=== PATIENT | male | born 1955 | race Caucasian/White ===

== ENCOUNTER 2019-05-02 19:19 | Observation (INO) ==
[2019-05-02 20:16] LABS: Basophils # 0.2 10*3/uL (0.0-0.2); Basophils % 0.9 % (0.0-0.8); Eosinophils # 0.2 10*3/uL (0.0-0.87); Eosinophils % 0.9 % (0.00-10.9); Hematocrit 47.8 VOL% (42.0-52.0); Hemoglobin 15.3 GM/DL (14.0-18.0); Immature Granulocytes % 0.6 %; Lymphocytes % 5.7 % (21.2-54.2); Mean Corpuscular Volume 89.8 FL (87-102); Mean Platelet Volume 9.9 FL (9.6-12.0); Monocytes % 6.8 % (1.7-12.7); Neutrophils % 85.1 % (38.7-73.9); Platelet Count 442 T/CUMM (130-400); Red Blood Count 5.32 MC/CUMM (3.8-5.5); Red Cell Distribution Width 14.2 % (9.3-17.3)
[2019-05-02] MEDS ORDERED: ACETAMINOPHEN 500 MG TABLET PO PRN (20:20)
[2019-05-02 20:25] LABS: PT Patient Result 10.4 SECS (9.6-12.2); Partial Thromboplastin Time 23.9 SECS (20.8-36.0)
[2019-05-02 20:39] LABS: Alanine Aminotransferase 105 U/L (16-61); Albumin 3.7 G/DL (3.4-5.0); Alkaline Phosphatase 185 U/L (45-117); Aspartate Amino Transferase 58 U/L (0-37); Blood Urea Nitrogen 26 MG/DL (7-18); Calcium 8.5 MG/DL (8.5-10.1); Estimated Glom Filtration Rate 53 ML/MIN; Glucose 121 MG/DL (74-106); Osmolality,Calculated 280.7 MOS/KG (273-304); Total Protein 6.9 G/DL (6.4-8.3); Troponin I < 0.015 NG/ML (0.00-0.045)
[2019-05-02] MEDS: ONDANSETRON 4 MG/2 ML VIAL IV PRN (21:42)
[2019-05-02] MEDS ORDERED: ALBUTEROL/IPRATROPIUM 3 ML NEB RESP TX ONE (23:47)
[2019-05-02] MEDS: PANTOPRAZOLE 40 MG TABLET PO SCH (23:56)
[2019-05-03] MEDS: ALBUTEROL/IPRATROPIUM 3 ML NEB RESP TX SCH ×4 (00:41→19:15)
[2019-05-03] MEDS: MORPHINE 4 MG/1 ML VIAL IV PRN ×2 (05:09→09:47)
[2019-05-03] MEDS: ONDANSETRON 4 MG/2 ML VIAL IV PRN ×3 (05:10→15:10)
[2019-05-03] MEDS: PANTOPRAZOLE 40 MG TABLET PO SCH (09:42)
[2019-05-03 10:10] LABS: Basophils # 0.1 10*3/uL (0.0-0.2); Eosinophils # 0.1 10*3/uL (0.0-0.87); Eosinophils % 0.6 % (0.00-10.9); Hematocrit 48.4 VOL% (42.0-52.0); Hemoglobin 15.1 GM/DL (14.0-18.0); Immature Granulocytes % 0.9 %; Immature Granulocytes Absolute 0.11 #; Lymphocytes # 0.6 10*3/uL (1.4-4.0); Lymphocytes % 5.2 % (21.2-54.2); Mean Corpuscular HGB Conc 31.2 GM/DL (32-36); Mean Corpuscular Volume 90.8 FL (87-102); Mean Platelet Volume 10.3 FL (9.6-12.0); Monocytes % 7.9 % (1.7-12.7); Neutrophils % 84.4 % (38.7-73.9); Platelet Count 368 T/CUMM (130-400); Red Blood Count 5.33 MC/CUMM (3.8-5.5); Red Cell Distribution Width 14.4 % (9.3-17.3); White Blood Count 12.3 T/CUMM (4-12)
[2019-05-03] MEDS: SODIUM CHLORIDE 0.9% 1,000 ML IV SCH ×2 (10:33→13:52)
[2019-05-03 10:53] LABS: Albumin 3.7 G/DL (3.4-5.0); Bilirubin,Total 0.8 MG/DL (0.2-1.0); Calcium 8.6 MG/DL (8.5-10.1); Osmolality,Calculated 282.5 MOS/KG (273-304); Total Protein 6.9 G/DL (6.4-8.3)
[2019-05-03] MEDS ORDERED: EPINEPHrine 1 MG/ML VIAL IM ONE (11:20)
[2019-05-03] MEDS ORDERED: TRIAMCINOLONE ACETONIDE 40 MG/1 ML VIAL IM ONE (11:20)
[2019-05-03] MEDS ORDERED: NALOXONE 0.4 MG/ML VIAL IV PRN (12:24)
[2019-05-03] MEDS ORDERED: HYDROmorphone PCA 30 MG/30 ML SYRINGE IV SCH (12:30)
[2019-05-03] MEDS: KETOROLAC 30 MG/1 ML VIAL IV SCH ×2 (13:52→18:50)
[2019-05-04] MEDS: KETOROLAC 30 MG/1 ML VIAL IV SCH ×2 (00:24→06:19)
[2019-05-04] MEDS: SODIUM CHLORIDE 0.9% 1,000 ML IV SCH (00:25)
[2019-05-04] MEDS: ALBUTEROL/IPRATROPIUM 3 ML NEB RESP TX SCH ×2 (01:10→08:58)
[2019-05-04] MEDS: ONDANSETRON 4 MG/2 ML VIAL IV PRN (04:11)
[2019-05-04 07:19] VITALS: BP 122/66
[2019-05-04] MEDS: PANTOPRAZOLE 40 MG TABLET PO SCH (08:38)
== END 2019-05-04 10:04 | disposition home or self-care (01) ==
LOC: EDBD → EDUNIT# → N.ED 19:19 → N.EDINP 19:19 → N.3E 20:53
PROVIDERS: ADMIT Surgery; ATTEND Surgery

== ENCOUNTER 2021-02-26 08:20 | Inpatient (IN) ==
[2021-02-26] MEDS ORDERED: MAGNESIUM SULF RIDER 2 GM/50 ML PREMIX IV PRN (10:16)
[2021-02-26] MEDS ORDERED: diphenhydrAMINE CAP 25 MG CAPSULE PO PRN (10:16)
[2021-02-26] MEDS ORDERED: hydrALAZINE 20 MG/1 ML VIAL IV PRN (10:16)
[2021-02-26] MEDS ORDERED: MAGNESIUM SULF RIDER 4 GM/100 ML PREMIX IV PRN (10:16)
[2021-02-26] MEDS ORDERED: guaiFENesin/DM ER 600-30 MG TABLET PO PRN (10:16)
[2021-02-26] MEDS ORDERED: MORPHINE 2 MG/1 ML SYRINGE IV PRN (10:16)
[2021-02-26] MEDS ORDERED: NICOTINE 21 MG/24 HR PATCH TRANSDERM PRN (10:16)
[2021-02-26] MEDS ORDERED: DOCUSATE SODIUM 100 MG CAPSULE PO PRN (10:16)
[2021-02-26] MEDS ORDERED: ZALEPLON 5 MG CAPSULE PO PRN (10:16)
[2021-02-26] MEDS ORDERED: ONDANSETRON 4 MG/2 ML VIAL IV PRN (10:16)
[2021-02-26] MEDS ORDERED: ACETAMINOPHEN 325 MG TABLET PO PRN (10:16)
[2021-02-26] MEDS ORDERED: BISACODYL 5 MG TABLET PO PRN (10:16)
[2021-02-26] MEDS ORDERED: PROMETHAZINE 25 MG TABLET PO PRN (10:16)
[2021-02-26] MEDS ORDERED: ALUMINUM/MAGNES/SIMETH MAX STR 30 ML UDCUP PO PRN (10:16)
[2021-02-26] MEDS ORDERED: POTASSIUM CHLORIDE RIDER 10 MEQ/100 ML PREMIX IV PRN (10:18)
[2021-02-26] MEDS ORDERED: DIAZEPAM 5 MG TABLET PO ONE (10:18)
[2021-02-26] MEDS ORDERED: diphenhydrAMINE CAP 50 MG CAPSULE PO ONE (10:18)
[2021-02-26] MEDS ORDERED: HEPARIN 5,000 UNIT/1 ML VIAL IV ONE (10:31)
[2021-02-26] MEDS ORDERED: HEPARIN DRIP 25,000 UNITS/500 ML PREMIX IV SCH (11:00)
[2021-02-26 11:01] LABS: CKMB % 8.9 %
[2021-02-26 11:04] LABS: High Sensitive Troponin I* 2324.1 ng/L (0-78)
[2021-02-26] MEDS: VALSARTAN 80 MG TABLET PO SCH (11:37)
[2021-02-26] MEDS ORDERED: LIDOCAINE 1% 20 ML VIAL ONE (15:22)
[2021-02-26] MEDS ORDERED: HEPARIN/NACL 0.9% 2 UNITS/ML 2,000 UNIT/1,000 ML BAG IV ONE (15:22)
[2021-02-26] MEDS ORDERED: MIDAZOLAM 2 MG/2 ML VIAL ONE ×2 (16:16→16:23)
[2021-02-26] MEDS ORDERED: fentaNYL 100 MCG/2 ML VIAL ONE (16:16)
[2021-02-26] MEDS ORDERED: ACETAMINOPHEN/CODEINE 300-30 MG TABLET PO PRN (16:56)
[2021-02-26] MEDS ORDERED: SODIUM CHLORIDE 0.9% 1,000 ML IV SCH (17:00)
[2021-02-26] MEDS: PANTOPRAZOLE 40 MG TABLET PO SCH (17:29)
[2021-02-26] MEDS: METOPROLOL TARTRATE 25 MG TABLET PO SCH (20:30)
[2021-02-26] MEDS: VITAMIN E 400 UNIT CAPSULE PO SCH (20:30)
[2021-02-26] MEDS: ROSUVASTATIN 20 MG TABLET PO SCH (20:31)
[2021-02-27 05:04] LABS: Basophils # 0.1 10*3/uL (0.0-0.2); Basophils % 1.1 % (0.0-0.8); Eosinophils # 0.2 10*3/uL (0.0-0.87); Eosinophils % 1.7 % (0.00-10.9); Hematocrit 47.4 VOL% (42.0-52.0); Immature Granulocytes % 0.8 %; Immature Granulocytes Absolute 0.09 #; Lymphocytes # 0.8 10*3/uL (1.4-4.0); Lymphocytes % 7.4 % (21.2-54.2); Mean Corpuscular HGB Conc 31.6 GM/DL (32-36); Mean Corpuscular Volume 90.1 FL (87-102); Mean Platelet Volume 10.5 FL (9.6-12.0); Monocytes % 7.5 % (1.7-12.7); Neutrophils % 81.5 % (38.7-73.9); Platelet Count 432 T/CUMM (130-400); Red Blood Count 5.26 MC/CUMM (3.8-5.5); Red Cell Distribution Width 14.4 % (9.3-17.3); White Blood Count 11.4 T/CUMM (4-12)
[2021-02-27 05:36] LABS: Bilirubin,Total 1.2 MG/DL (0.20-1.00); Calcium 9.1 MG/DL (8.5-10.1); Osmolality,Calculated 279.7 MOS/KG (273-304); Potassium 4.3 MMOL/L (3.5-5.1); Total Protein 6.7 G/DL (6.4-8.2)
[2021-02-27 05:38] LABS: Risk Ratio 3.84
[2021-02-27] MEDS ORDERED: PANTOPRAZOLE 40 MG TABLET PO SCH (09:00)
[2021-02-27] MEDS: VITAMIN E 400 UNIT CAPSULE PO SCH ×2 (09:58→21:05)
[2021-02-27] MEDS: PANTOPRAZOLE 40 MG TABLET PO SCH (09:58)
[2021-02-27] MEDS: METOPROLOL TARTRATE 25 MG TABLET PO SCH ×2 (09:58→21:05)
[2021-02-27] MEDS: VALSARTAN 80 MG TABLET PO SCH (09:59)
[2021-02-27] MEDS: ASPIRIN EC 81 MG TABLET PO SCH (09:59)
[2021-02-27] MEDS ORDERED: cloNIDine 0.1 MG TABLET PO ONE (12:16)
[2021-02-27] MEDS ORDERED: KETOROLAC 30 MG/1 ML VIAL IV ONE (12:22)
[2021-02-27] MEDS ORDERED: NITROGLYCERIN SL 0.4 MG TABLET SL ONE (12:36)
[2021-02-27] MEDS ORDERED: MORPHINE 2 MG/1 ML SYRINGE IV ONE (12:44)
[2021-02-27] MEDS ORDERED: NIFEdipine 10 MG CAPSULE PO ONE (12:58)
[2021-02-27 13:32] LABS: Basophils # 0.2 10*3/uL (0.0-0.2); Eosinophils # 0.3 10*3/uL (0.0-0.87); Eosinophils % 1.6 % (0.00-10.9); Hematocrit 52.3 VOL% (42.0-52.0); Hemoglobin 16.6 GM/DL (14.0-18.0); Immature Granulocytes % 1.2 %; Immature Granulocytes Absolute 0.21 #; Lymphocytes # 1.2 10*3/uL (1.4-4.0); Lymphocytes % 6.7 % (21.2-54.2); Mean Corpuscular HGB Conc 31.7 GM/DL (32-36); Mean Corpuscular Volume 88.3 FL (87-102); Mean Platelet Volume 10.4 FL (9.6-12.0); Monocytes % 9.7 % (1.7-12.7); Neutrophils % 79.8 % (38.7-73.9); Platelet Count 555 T/CUMM (130-400); Red Blood Count 5.92 MC/CUMM (3.8-5.5); Red Cell Distribution Width 14.6 % (9.3-17.3); White Blood Count 17.9 T/CUMM (4-12)
[2021-02-27 13:47] LABS: Calcium 9.9 MG/DL (8.5-10.1); Potassium 4.5 MMOL/L (3.5-5.1)
[2021-02-27] MEDS ORDERED: HYDROmorphone 2 MG/1 ML VIAL IV ONE (14:14)
[2021-02-27] MEDS ORDERED: HEPARIN/NACL 0.9% 2 UNITS/ML 2,000 UNIT/1,000 ML BAG IV ONE (14:35)
[2021-02-27] MEDS ORDERED: HYDROmorphone 2 MG/1 ML VIAL ONE (15:08)
[2021-02-27] MEDS ORDERED: LIDOCAINE 1% 20 ML VIAL ONE (15:08)
[2021-02-27] MEDS ORDERED: MIDAZOLAM 2 MG/2 ML VIAL ONE (15:08)
[2021-02-27] MEDS ORDERED: ONDANSETRON 4 MG/2 ML VIAL ONE (15:16)
[2021-02-27] MEDS ORDERED: TIROFIBAN 5,000 MCG/100 ML PREMIX IV ONE (15:56)
[2021-02-27] MEDS ORDERED: ENOXAPARIN 60 MG/0.6 ML SYRINGE ONE (15:59)
[2021-02-27] MEDS ORDERED: TICAGRELOR 90 MG TABLET ONE (16:24)
[2021-02-27] MEDS: TIROFIBAN 5,000 MCG/100 ML PREMIX IV SCH (16:59)
[2021-02-27] MEDS ORDERED: SODIUM CHLORIDE 0.9% 1,000 ML IV SCH (17:00)
[2021-02-27] MEDS: ROSUVASTATIN 20 MG TABLET PO SCH (21:04)
[2021-02-27] MEDS: TICAGRELOR 90 MG TABLET PO SCH (21:05)
[2021-02-28] MEDS: TIROFIBAN 5,000 MCG/100 ML PREMIX IV SCH ×2 (01:35→05:41)
[2021-02-28 05:52] LABS: Basophils # 0.1 10*3/uL (0.0-0.2); Basophils % 0.8 % (0.0-0.8); Eosinophils # 0.2 10*3/uL (0.0-0.87); Eosinophils % 1.4 % (0.00-10.9); Hematocrit 46.9 VOL% (42.0-52.0); Hemoglobin 14.8 GM/DL (14.0-18.0); Immature Granulocytes % 0.8 %; Immature Granulocytes Absolute 0.11 #; Lymphocytes # 1.3 10*3/uL (1.4-4.0); Lymphocytes % 9.8 % (21.2-54.2); Mean Corpuscular HGB Conc 31.6 GM/DL (32-36); Mean Corpuscular Volume 89.7 FL (87-102); Mean Platelet Volume 10.5 FL (9.6-12.0); Monocytes % 10.5 % (1.7-12.7); Neutrophils % 76.7 % (38.7-73.9); Platelet Count 423 T/CUMM (130-400); Red Blood Count 5.23 MC/CUMM (3.8-5.5); Red Cell Distribution Width 14.7 % (9.3-17.3); White Blood Count 13.2 T/CUMM (4-12)
[2021-02-28 06:13] LABS: Calcium 8.8 MG/DL (8.5-10.1); Osmolality,Calculated 281.4 MOS/KG (273-304); Potassium 3.9 MMOL/L (3.5-5.1)
[2021-02-28] MEDS: PANTOPRAZOLE 40 MG TABLET PO SCH (09:24)
[2021-02-28] MEDS: ASPIRIN EC 81 MG TABLET PO SCH (09:24)
[2021-02-28] MEDS: VALSARTAN 80 MG TABLET PO SCH (09:24)
[2021-02-28] MEDS: VITAMIN E 400 UNIT CAPSULE PO SCH ×2 (09:24→21:10)
[2021-02-28] MEDS: TICAGRELOR 90 MG TABLET PO SCH ×2 (09:24→21:10)
[2021-02-28] MEDS: METOPROLOL TARTRATE 25 MG TABLET PO SCH ×2 (09:25→21:10)
[2021-02-28] MEDS: ROSUVASTATIN 20 MG TABLET PO SCH (21:10)
[2021-03-01 06:20] LABS: Calcium 8.9 MG/DL (8.5-10.1); Osmolality,Calculated 284.4 MOS/KG (273-304); Potassium 3.5 MMOL/L (3.5-5.1)
[2021-03-01] MEDS: PANTOPRAZOLE 40 MG TABLET PO SCH (10:04)
[2021-03-01] MEDS: VALSARTAN 80 MG TABLET PO SCH (10:04)
[2021-03-01] MEDS: VITAMIN E 400 UNIT CAPSULE PO SCH (10:04)
[2021-03-01] MEDS: METOPROLOL TARTRATE 25 MG TABLET PO SCH (10:04)
[2021-03-01] MEDS: TICAGRELOR 90 MG TABLET PO SCH (10:05)
[2021-03-01] MEDS: ASPIRIN EC 81 MG TABLET PO SCH (10:05)
[2021-03-01 11:37] VITALS: BP 130/69
== END 2021-03-01 12:55 | disposition home or self-care (01) | DRG 247 ==
LOC: N.TELEN
PROVIDERS: ADMIT Internal Medicine Cardiovascular Disease; ATTEND Internal Medicine Cardiovascular Disease
PROC: CLCCHCL (ICD-10-PCS; 2021-02-26 16:15)